=== PATIENT | female | born 2000 | race Caucasian/White ===

== ENCOUNTER 2024-07-07 18:16 | Emergency (ER) | payer BC ==
[~2024-07-07] VITALS: Ht 162.6 cm; Wt 80.0 kg
[2024-07-07 18:27] VITALS: TEMP 98.4; O2SAT 100
[2024-07-07] MEDS ORDERED: BACITRACIN ZINC OINT UDPKT TOP ONE (19:45)
[2024-07-07] MEDS ORDERED: IBUPROFEN 600MG TABLET PO ONE (19:45)
[2024-07-07] MEDS ORDERED: LIDOCAINE HCL/PF 1% 10 MG/ML 5ML VIAL INFIL ONE (19:45)
[2024-07-07] MEDS: LIDOCAINE HCL/PF 1% 10 MG/ML 5ML VIAL INFIL NR (22:40)
[2024-07-07] MEDS: IBUPROFEN 600MG TABLET PO NR (22:40)
[2024-07-07] MEDS: BACITRACIN ZINC OINT UDPKT TOP NR (22:40)
[2024-07-07] MEDS ORDERED: NAPR500T7 MT (22:53)
[2024-07-07] MEDS ORDERED: CEPH500T MT (22:53)
[2024-07-07] MEDS ORDERED: SULF1TAB48 MT (22:53)
[2024-07-07 23:20] VITALS: BP 121/62; PULSE 91; RESP 20; O2SAT 99
== END 2024-07-07 23:22 | disposition home or self-care (01) ==
LOC: ER 18:16
DX: L02.416 Cutaneous abscess of left lower limb (principal)
CPT/HCPCS: 99283; J3490; Z7610 ×3

== ENCOUNTER 2024-07-09 22:17 | Emergency (ER) | payer BC ==
[~2024-07-09] VITALS: Ht 165.1 cm; Wt 64.0 kg
[~2024-07-09 22:17] MED LIST: CEPH500T MT; NAPR500T7 MT; SULF1TAB48 MT
[2024-07-09 22:38] VITALS: O2SAT 100
[2024-07-10 00:58] VITALS: BP 112/61; PULSE 76; RESP 18; TEMP 36.89184; O2SAT 98
== END 2024-07-10 01:07 | disposition home or self-care (01) ==
LOC: ER 22:17
DX: L02.416 Cutaneous abscess of left lower limb (principal)
CPT/HCPCS: 99281